=== PATIENT | female | born 1975 | race Caucasian/White ===

== ENCOUNTER 2016-08-04 18:53 | Emergency (ER) | payer OTHER ==
[2016-08-04 19:24] VITALS: BP 116/81
--- NOTE | 2016-08-04 19:45 | UC ---
Ear Complaint HPI - HPI Summary HPI Summary: pt c/o left ear ache X 1 week. Pt is concerned that an earring has fallen into her ear canal. - History of Current Complaint Chief Complaint: UCEar Stated Complaint: EAR PAIN/HEARING LOSS Time Seen by Provider: 08/04/16 19:17 Hx Obtained From: Patient Hx Last Menstrual Period: July 2011 ?: No Onset/Duration: Gradual Onset, Lasting Weeks Severity Initially: Mild Severity Currently: Mild Associated Signs/Symptoms: Positive: Hearing Loss - Allergies/Home Medications Allergies/Adverse Reactions: Allergies Allergy/AdvReac Type Severity Reaction Status Date / Time Metoclopramide [From Reglan] Allergy Intermediate severe Verified 01/10/16 13:15 anxiety Penicillins Allergy Intermediate Hives Verified 01/10/16 13:15 Erythromycin Allergy Mild Hives Verified 01/10/16 13:15 Macrolides Allergy Mild Hives Verified 01/10/16 13:15 Sulfa Antibiotics Allergy Mild Hives Verified 01/10/16 13:15 Amoxicillin Allergy Hives Verified 08/04/16 19:24 Home Medications: Home Medications Acetaminophen [Acetaminophen Extra Stren] 500 mg PO Q4HR PRN 08/04/16 [History Confirmed 08/04/16] PMH/Surg Hx/FS Hx/Imm Hx Previously Healthy: Yes Endocrine History Of: Denies: Diabetes Cardiovascular History Of: Denies: Cardiac Disorders, Hypertension GI/ History Of: Denies: Ulcer Psychological History Of: Reports: Depression - Surgical History Surgical History: Yes Surgery Procedure, Year, and Place: spinal fusion c5-6 2012 bilateral lumpectomies 1997 - Family History Known Family History: Positive: Other - positive [facility] URI - Social History Lives: With Family Alcohol Use: Weekly Alcohol Amount: binges 2x week Substance Use Type: None Substance Use Comment - Amount & Last Used: fentanyl patch and hydromorphone tabs Smoking Status (MU): Current Every Day Smoker Type: Cigarettes Amount Used/How Often: 1ppd Length of Time of Smoking/Using Tobacco: Smoker since 15 Have You Smoked in the Last Year: Yes Household Exposure Type: Cigarettes Review of Systems Constitutional: Negative Skin: Negative Eyes: Negative ENT: Ear Ache - left ear Respiratory: Negative Cardiovascular: Negative Gastrointestinal: Negative Genitourinary: Negative Motor: Negative Neurovascular: Negative Musculoskeletal: Negative Neurological: Negative Psychological: Negative All Other Systems Reviewed And Are Negative: Yes Physical Exam Triage Information Reviewed: Yes Appearance: Well-Appearing Vital Signs: Initial Vital Signs Temp 99.2 F 08/04/16 19:18 Pulse 112 08/04/16 19:18 Resp 16 08/04/16 19:18 BP 116/81 08/04/16 19:18 Pulse Ox 98 08/04/16 19:18 Eye Exam: Normal ENT Exam: Other ENT: Positive: TM bulging - left ear Neck exam: Normal Respiratory Exam: Normal Cardiovascular Exam: Normal Abdominal Exam: Normal Musculoskeletal Exam: Normal Neurological Exam: Normal Psychological Exam: Normal Skin Exam: Normal Ear Complaint Course/Dx - Differential Dx/Diagnosis Differential Diagnosis/HQI/PQRI: Otitis Media, URI Provider Diagnoses: left ear ache Discharge - Discharge Plan Condition: Stable Disposition: HOME Patient Education Materials: Earache (ED) Referrals: Venita Cid MD [Primary Care Provider] - Additional Instructions: Please follow up with your PCP or return to clinic as needed
== END 2016-08-04 19:47 | disposition home or self-care (01) ==
LOC: UCCORT 18:53
DX: H92.02 Otalgia, left ear (principal); Z88.1 Allergy status to other antibiotic agents; Z88.0 Allergy status to penicillin; Z88.2 Allergy status to sulfonamides; Z88.8 Allergy status to other drugs, medicaments and biological substances; F17.210 Nicotine dependence, cigarettes, uncomplicated
CPT/HCPCS: 99211; G0463